=== PATIENT | male | born 1990 | race Two or more races ===

== ENCOUNTER 2017-10-20 02:04 | Emergency (ER) | payer SELFPAY ==
[2017-10-20 02:22] VITALS: BP 135/80; PULSE 111; RESP 16; TEMP 97.4; O2SAT 97
[2017-10-20] MEDS ORDERED: Lidocaine 1% Inj (20ml) ONE (02:26)
--- NOTE | 2017-10-20 03:01 | ED PDOC ---
HPI: Skin/Bite Injury Time Seen by Provider: 10/20/17 02:22 Chief Complaint (Nursing): Abnormal Skin Integrity Chief Complaint (Provider): Abnormal Skin Integrity History Per: Patient History/Exam Limitations: no limitations Onset/Duration Of Symptoms: Mins (prior to arrival) Current Symptoms Are (Timing): Still Present Additional Complaint(s): 27 year old right hand dominant male presents to the ED for evaluation of a laceration on his left hand that occurred minutes prior to arrival. He reports a piece of glass cut him. Believe his tetanus is UTD (last 10 years). PMD: none provided Past Medical History Reviewed: Historical Data, Nursing Documentation, Vital Signs Vital Signs: Last Vital Signs Temp 97.4 F L 10/20/17 02:18 Pulse 111 H 10/20/17 02:18 Resp 16 10/20/17 02:18 BP 135/80 10/20/17 02:18 Pulse Ox 97 10/20/17 03:17 - Medical History PMH: No Chronic Diseases - Surgical History Surgical History: No Surg Hx - Family History Family History: States: Unknown Family Hx - Allergies Allergies/Adverse Reactions: Allergies Allergy/AdvReac Type Severity Reaction Status Date / Time No Known Allergies Allergy Verified 10/20/17 02:22 Review of Systems ROS Statement: Except As Marked, All Systems Reviewed And Found Negative Skin: Positive for: Other (left hand laceration) Physical Exam - Reviewed Nursing Documentation Reviewed: Yes Vital Signs Reviewed: Yes - Physical Exam Extremity: Positive for: Normal ROM (full ROM at left thumb with sensation intact), Other (2 cm superficial laceration between PIP and DIP). Negative for : Deformity (ligament or muscle involvement) - ECG O2 Sat by Pulse Oximetry: 97 Medical Decision Making Medical Decision Making: Time: 03:13 --Procedure: 4 sutures to repair laceration Patient requires no further treatment at the ED at this time and will be discharged home. Follow up with PMD as needed. Return to ED if symptoms persist or worsen. Scribe Attestation: Documented by Laura Brooks, acting as a scribe for Jeferson Bella MD. Provider Scribe Attestation: All medical record entries made by the Scribe were at my direction and personally dictated by me. I have reviewed the chart and agree that the record accurately reflects my personal performance of the history, physical exam, medical decision making, and the department course for this patient. I have also personally directed, reviewed, and agree with the discharge instructions and disposition. Disposition - Clinical Impression Clinical Impression: Laceration - Patient ED Disposition Is Patient to be Admitted: No - Disposition Disposition: Routine/Home Disposition Time: 03:13 Condition: STABLE Instructions: Care For Your Stitches (ED), Laceration (ED) Forms: Kout (Kazakh) Procedures - Laceration/Wound Repair Left Hand Wound Length (cm): 2 Wound's Depth, Shape: superficial Anesthesia: 1% Lidocaine Wound Repaired With: Sutures Suture Size/Type: 5:0 (Vicryl) Number of Sutures: 4 Wound Complexity: Simple
== END 2017-10-20 03:21 | disposition home or self-care (01) ==
LOC: H.ER 02:04
DX: S61.412A Laceration without foreign body of left hand, initial encounter (principal); W25.XXXA Contact with sharp glass, initial encounter; Y92.89 Other specified places as the place of occurrence of the external cause